=== PATIENT | female | born 1995 | race Two or more races ===

== ENCOUNTER 2017-02-15 22:24 | Emergency (ER) | payer OTHER ==
[~2017-02-15] VITALS: Ht 172.7 cm; Wt 63.5 kg
[~2017-02-15 22:24] MED LIST: BACITRACIN1 APPLIC TOPIC; GUAIFENESIN1200 MG PO; IBUPROFEN400 MG ORAL; IBUPROFEN600 MG ORAL; LIDOCAINE VISCO20 ML PO; NEXAFED30 MG ORAL; NORCO 5-325 TA1 EACH ORAL; PROMETHAZI6.25 MG/1 ORAL
[2017-02-15] MEDS ORDERED: NKM (22:47)
[2017-02-15 23:16] VITALS: BP 99/69
--- NOTE | 2017-02-16 01:39 | Emergency Room Report ---
History of Present Illness General Chief Complaint: General Complaint Source: Patient Present Illness HPI Patient is a 21-year-old female who presented after marijuana ingestion. The patient stated that she had been smoking marijuana earlier in the day. She was noted by mom to be somewhat somnolent. She denied any fever. The patient stated that her mom stated that she had been unresponsive. Patient denies any current complaints. Allergies: Coded Allergies: No Known Allergies (Unverified , 10/25/12) Patient History Past Medical History: see triage record Now: No : 0 Para: 0 Reviewed Nursing Documentation: PMH: Agreed, PSxH: Agreed Nursing Documentation-PMH Hx Asthma: Yes Review of Systems All Other Systems: negative except mentioned in HPI Physical Exam Vital Signs Date Time Temp Pulse Resp B/P (MAP) Pulse Ox O2 Delivery O2 Flow Rate FiO2 02/15/17 22:43 98.1 85 14 99/69 96 Room Air General Appearance: well appearing, no apparent distress, alert, GCS 15 Head: normocephalic, atraumatic ENT: hearing grossly normal, normal voice Neck: full range of motion, supple Respiratory: normal breath sounds, no respiratory distress, speaking full sentences Cardiovascular #1: normal peripheral pulses, regular rate, rhythm Gastrointestinal: non tender, soft, no mass Musculoskeletal: normal inspection, back normal, no calf tenderness Neurologic: normal inspection, alert, oriented x3, responsive, normal gait Psychiatric: mood/affect normal Skin: no rash Medical Decision Making Diagnostic Impression: Primary Impression: Marijuana use ER Course Presented for altered mental status. Differential diagnosis included but was not limited to ischemic stroke, subarachnoid hemorrhage, hypoglycemia, spinal cord injury, neurodegenerative disorder, urinary tract infection, hypoxemia. Patient's benign exam and does not appear to require any further imaging or laboratory testing at this time. The patient's mental status changes appear to be related to marijuana use. The patient is advised to follow up with primary care doctor in 1-2 days. Patient is advised to return if any worsening condition or if any changes in status that are concerning. Last Vital Signs Date Time Temp Pulse Resp B/P (MAP) Pulse Ox O2 Delivery O2 Flow Rate FiO2 02/15/17 23:16 98.1 14 99/69 96 Room Air 02/15/17 22:43 85 Status: improved Disposition: HOME, SELF-CARE Condition: Stable Referrals: [facility],REFERRING (PCP) Patient Instructions: Cannabis Use Disorder Braydon Alexander Feb 16, 2017 01:39
== END 2017-02-15 23:16 | disposition home or self-care (01) ==
LOC: EMR 23:07
DX: F12.90 Cannabis use, unspecified, uncomplicated (principal); R41.82 Altered mental status, unspecified; J45.909 Unspecified asthma, uncomplicated
CPT/HCPCS: 99282

== ENCOUNTER 2017-07-10 12:50 | Emergency (ER) | payer MEDICAID, OTHER ==
[~2017-07-10] VITALS: Ht 172.7 cm; Wt 62.6 kg
[~2017-07-10 12:50] MED LIST changes: +NKM
[2017-07-10 13:39] VITALS: BP 117/68
[2017-07-10] MEDS ORDERED: Meclizine 25mg tab ORAL ONE (13:45)
[2017-07-10] MEDS ORDERED: BACITRACIN-P28.35 GM TP (13:56)
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
[2017-07-10] MEDS ORDERED: Bacitracin Oint UD TOPIC ONE (14:00)
[2017-07-10 14:28] VITALS: BP 117/68
== END 2017-07-10 14:28 | disposition home or self-care (01) ==
LOC: EMR 13:35
DX: R11.2 Nausea with vomiting, unspecified (principal); S01.01XD Laceration without foreign body of scalp, subsequent encounter; Z48.02 Encounter for removal of sutures
CPT/HCPCS: 99283